=== PATIENT | male | born 1985 | race American Indian/Alaskan Native ===

== ENCOUNTER 2018-01-03 11:58 | Emergency (ER) | payer MEDICAID, OTHER ==
[2018-01-03 12:06] VITALS: RESP 20
[2018-01-03] MEDS ORDERED: Naproxen 550 mg Tab PO STA (13:05)
[2018-01-03] MEDS ORDERED: Naproxen 550 mg Tab PO ONE (13:16)
[2018-01-03 14:18] VITALS: BP 104/68; PULSE 74; TEMP 98.9; O2SAT 100
--- NOTE | 2018-01-03 14:20 | C.PDOC ---
History Of Present Illness 32 yo male c/o left hip pain for 3 weeks. Pt has a h/o intermittent b/l hip pain since secondary to "dislocated hips". Pt has never had surgery or seen the orthopedist. Pt states he knows he is predisposed to arthritis. Pain changes with weather. Denies changes in sensation, trauma, weakness, or any new symptoms. Time Seen by Provider: 01/03/18 12:50 Chief Complaint (Nursing): Hip Pain History Per: Patient History/Exam Limitations: no limitations Onset/Duration Of Symptoms: Days, Intermittent Episodes Past Medical History Vital Signs: Last Vital Signs Temp 98.9 F 01/03/18 14:18 Pulse 74 01/03/18 14:18 Resp 20 01/03/18 14:18 BP 104/68 01/03/18 14:18 Pulse Ox 100 01/03/18 15:57 - Medical History PMH: Arthritis (hips) Family History: States: Unknown Family Hx - Social History Hx Tobacco Use: Yes Hx Alcohol Use: Yes Hx Substance Use: No (denied) - Immunization History Hx Tetanus Toxoid Vaccination: No Hx Influenza Vaccination: Yes (2015 at pharmacy) Hx Pneumococcal Vaccination: Yes (2015 at pharmacy) Review Of Systems Except As Marked, All Systems Reviewed And Found Negative. Physical Exam - Physical Exam Appears: Well, Non-toxic, No Acute Distress Skin: Normal Color, Warm, Dry Eye(s): bilateral: Normal Inspection, EOMI Nose: Normal Neck: Normal, Normal ROM, Supple Chest: Symmetrical Respiratory: No Accessory Muscle Use Back: Normal Inspection Extremity: Normal ROM, Tenderness (Left lateral hip pain), No Pedal Edema, No Calf Tenderness, Capillary Refill (<2 sec), No Deformity, No Swelling Pulses: Left Dorsalis Pedis: Normal, Right Dorsalis Pedis: Normal Neurological/Psych: Oriented x3, Normal Speech, Normal Motor, Normal Sensation Gait: Steady ED Course And Treatment O2 Sat by Pulse Oximetry: 100 - Other Rad L Hip XR X-Ray: Interpreted by Me (and Dr Giordano), Viewed By Me Interpretation: (+) chronic changes and arthritis, no fx or dislocation Progress Note: Naproxen given. pt is instructed to follo wup with ortho in 1-2 days for further evaluation. Disposition - Disposition Referrals: Rj Lowe MD [Staff Provider] - Disposition: HOME/ ROUTINE Disposition Time: 14:18 Condition: STABLE Additional Instructions: Follow up with referral physician in 1-2 days without fail for further evaluation. Return to the emergency department at any time if symptoms persist or worsen. Instructions: Hip Pain (DC) Forms: [facility] (Congolese) - Clinical Impression Clinical Impression: Hip pain, Hip arthritis
--- NOTE | 2018-01-03 16:30 | RAD ---
PROCEDURE: Left Hip X-ray Radiographs. HISTORY: pain COMPARISON: None. FINDINGS: Bilateral hip dysplasia with shallow acetabula, flattening of the femoral head and superior subluxation of both hips, unchanged. Large subchondral cysts in both femoral heads, unchanged. No acute fracture is evident. IMPRESSION: No demonstrated fracture or dislocation. Stable appearance of bilateral hips.
== END 2018-01-03 14:33 | disposition home or self-care (01) ==
LOC: C.ER 11:58
DX: M13.852 Other specified arthritis, left hip (principal); M25.552 Pain in left hip

== ENCOUNTER 2018-06-18 13:57 | Emergency (ER) | payer OTHER ==
[2018-06-18 14:26] VITALS: RESP 18; O2SAT 100
--- NOTE | 2018-06-18 15:36 | C.PDOC ---
History Of Present Illness 32 year old male is brought in by ambulance to the emergency department with complaints of right knee pain from falling down the stairs and landing on his right knee two days ago. 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 He denies any other injuries. Time Seen by Provider: 06/18/18 14:30 Chief Complaint (Nursing): Lower Extremity Problem/Injury History Per: Patient History/Exam Limitations: no limitations Onset/Duration Of Symptoms: Days (2) Current Symptoms Are (Timing): Still Present - Knee Description Of Injury: Fell (right knee) Past Medical History Reviewed: Historical Data, Nursing Documentation, Vital Signs Vital Signs: Last Vital Signs Temp 98.7 F 06/18/18 16:56 Pulse 69 06/18/18 16:56 Resp 18 06/18/18 16:56 BP 106/67 06/18/18 16:56 Pulse Ox 100 06/18/18 16:56 - Medical History PMH: Arthritis (hips) Surgical History: No Surg Hx Family History: States: No Known Family Hx - Social History Hx Tobacco Use: Yes Hx Alcohol Use: Yes Hx Substance Use: No (denied) - Immunization History Hx Tetanus Toxoid Vaccination: No Hx Influenza Vaccination: No (2015 at pharmacy) Hx Pneumococcal Vaccination: No (2015 at pharmacy) Review Of Systems Musculoskeletal: Positive for: Leg Pain (right knee) Physical Exam - Physical Exam Appears: Non-toxic, In Acute Distress (mild pain) Skin: Warm, Dry Head: Atraumatic, Normacephalic Extremity: Normal ROM (intact at knee), Tenderness (to the proximal fibula), No Calf Tenderness, No Swelling, No Other (right knee erythema) Pulses: Left Dorsalis Pedis: Normal, Right Dorsalis Pedis: Normal Neurological/Psych: Oriented x3, Normal Speech, Normal Cognition ED Course And Treatment O2 Sat by Pulse Oximetry: 100 (RA) Pulse Ox Interpretation: Normal - CT Scan/US pelvis US Other Rad Studies (CT/US): Read By Radiologist, Radiology Report Reviewed abdominal US Other Rad Studies (CT/US): Read By Radiologist, Radiology Report Reviewed Progress Note: Plan: XR Right Knee. Gume wrap applied. Patient given crutches and Naprosyn. Patient instructed to follow-up with orthopedics. Disposition Counseled Patient/Family Regarding: Studies Performed, Diagnosis, Need For Followup, Rx Given - Disposition Referrals: [facility] [Outside] Pete Eisenberg III, MD [Staff Provider] - Disposition: HOME/ ROUTINE Disposition Time: 16:50 Condition: STABLE Additional Instructions: FOLLOW UP WITH ORTHOPEDICS WITHIN 1 WEEK USE PAIN MEDICATION NEEDED RETURN TO ER IF SYMPTOMS WORSEN Prescriptions: Naproxen 375 mg PO BID PRN #20 tablet PRN Reason: pain Instructions: Knee Sprain (DC) Forms: [employer] (Tamazight) Print Language: TAJIK - Clinical Impression Clinical Impression: Right knee sprain - Scribe Statement The provider has reviewed the documentation as recorded by the Scribe (Mono Acostaqvi) Provider Attestation: All medical record entries made by the Scribe were at my direction and personally dictated by me. I have reviewed the chart and agree that the record accurately reflects my personal performance of the history, physical exam, medical decision making, and the department course for this patient. I have also personally directed, reviewed, and agree with the discharge instructions and disposition.
[2018-06-18] MEDS ORDERED: Naproxen 550 mg Tab PO STA (16:35)
[2018-06-18] MEDS ORDERED: Naproxen 550 mg Tab PO ONE (16:47)
[2018-06-18 16:57] VITALS: BP 106/67; PULSE 69; TEMP 98.7
--- NOTE | 2018-06-18 17:43 | RAD ---
Right knee three views History: Knee pain. Comparison: None available. Findings: Small suprapatellar joint effusion. Enthesopathic change at the superior bony patella. No evidence for acute displaced fracture or dislocation. Mild medial compartment joint space narrowing of the femorotibial joint space. Small soft tissue calcification seen within the anterior soft tissues at the level of the proximal tibia. Impression: Small suprapatellar joint effusion. Degenerative changes. If pain persists, consider MRI.
== END 2018-06-18 16:58 | disposition home or self-care (01) ==
LOC: C.ER 13:57
DX: S83.91XA Sprain of unspecified site of right knee, initial encounter (principal); W10.9XXA Fall (on) (from) unspecified stairs and steps, initial encounter

== ENCOUNTER 2018-09-27 08:59 | Emergency (ER) | payer MEDICAID, OTHER ==
[2018-09-27] MEDS ORDERED: Bacitracin 500 Units/gm Oint Foilpak UD ONE (09:28)
[2018-09-27 09:29] VITALS: BP 120/73; PULSE 90; RESP 20; TEMP 98; O2SAT 98
--- NOTE | 2018-09-27 10:27 | C.PDOC ---
History Of Present Illness 33 year old male presents to the ED for evaluation of an abrasion to the right knee s/p falling from standing sustained last night. Patient reports he was drinking alcohol last night when he fell while standing. Denies LOC, fever, numbness, tingling, other injuries, and any other associated symptoms. Time Seen by Provider: 09/27/18 10:21 Chief Complaint (Nursing): Lower Extremity Problem/Injury History Per: Patient History/Exam Limitations: no limitations Onset/Duration Of Symptoms: Hrs Current Symptoms Are (Timing): Still Present Past Medical History Reviewed: Historical Data, Nursing Documentation, Vital Signs Vital Signs: Last Vital Signs Temp 98.0 F 09/27/18 09:23 Pulse 90 09/27/18 09:23 Resp 20 09/27/18 09:23 BP 120/73 09/27/18 09:23 Pulse Ox 98 09/27/18 09:23 - Medical History PMH: Arthritis (hips) Family History: States: Unknown Family Hx - Social History Hx Tobacco Use: Yes Hx Alcohol Use: Yes Hx Substance Use: No (denied) - Immunization History Hx Tetanus Toxoid Vaccination: No Hx Influenza Vaccination: Yes (2015 at pharmacy) Hx Pneumococcal Vaccination: Yes (2014 at pharmacy) Review Of Systems Except As Marked, All Systems Reviewed And Found Negative. Constitutional: Negative for: Fever ENT: Positive for: Other (fall from standing. ) Skin: Positive for: Other (abrasion to the right knee. ) Neurological: Negative for: Weakness, Numbness, Incoordination, Other (LOC.) Physical Exam - Physical Exam Appears: Well, Non-toxic, No Acute Distress Skin: Warm, Dry, Other ((+) 4x4 cm abrasion to the right knee. (-) lacerations.) Head: Atraumatic, Normacephalic Eye(s): bilateral: PERRL Neck: Normal ROM, Supple Respiratory: Other (NARD.) Extremity: Normal ROM (x4), No Tenderness, No Calf Tenderness, No Deformity, No Swelling, No Other ((-) pre-patellar inflammation. (-) joint effusion. ) Neurological/Psych: Oriented x3, Normal Speech, Normal Cognition, Normal Motor, Normal Sensation, Normal Reflexes ED Course And Treatment O2 Sat by Pulse Oximetry: 98 (RA) Pulse Ox Interpretation: Normal Medical Decision Making Medical Decision Making: R knee abrasion yesterday while fell to ground from standing no knee joint involvement defer x-rays review h/o b/l hip displasia and chronic hip/leg pains- baseline this time. Plan: --Motrin. Progress/Update: Patient stable for discharge home. Disposition Doctor Will See Patient In The: Office Counseled Patient/Family Regarding: Studies Performed, Diagnosis - Disposition Referrals: Brett Majano MD [Medical Doctor] - Disposition: HOME/ ROUTINE Disposition Time: 10:26 Condition: GOOD Additional Instructions: keep abrasion clean and dry today Instructions: Skin Abrasions Forms: [employer] (Cambodian) - Clinical Impression Clinical Impression: Abrasion of knee, right - Scribe Statement The provider has reviewed the documentation as recorded by the Scribe (Anna Flaherty) Provider Attestation: All medical record entries made by the Scribe were at my direction and personally dictated by me. I have reviewed the chart and agree that the record accurately reflects my personal performance of the history, physical exam, medical decision making, and the department course for this patient. I have also personally directed, reviewed, and agree with the discharge instructions and disposition.
== END 2018-09-27 10:29 | disposition home or self-care (01) ==
LOC: C.ER 08:59
DX: S80.211A Abrasion, right knee, initial encounter (principal); W18.30XA Fall on same level, unspecified, initial encounter